=== PATIENT | male | born 1975 | race Caucasian/White ===

== ENCOUNTER 2018-06-01 11:23 | Emergency (ER) | payer OTHER | END 2018-06-01 13:47 | disposition home or self-care (01) | LOC: FTE 11:23 | DX: S80.812A Abrasion, left lower leg, initial encounter (principal); J45.909 Unspecified asthma, uncomplicated; W20.8XXA Other cause of strike by thrown, projected or falling object, initial encounter; Y92.89 Other specified places as the place of occurrence of the external cause | CPT/HCPCS: 73630; 73630-LT; 99283-25 ==

== ENCOUNTER 2018-06-06 10:09 | Emergency (ER) | payer SELFPAY | END 2018-06-06 11:53 | disposition home or self-care (01) | LOC: FTE 10:09 | DX: S90.122A Contusion of left lesser toe(s) without damage to nail, initial encounter (principal); S89.92XA Unspecified injury of left lower leg, initial encounter; J45.909 Unspecified asthma, uncomplicated; W18.39XA Other fall on same level, initial encounter; Y92.89 Other specified places as the place of occurrence of the external cause | CPT/HCPCS: 73562; 73660; 99283-25 ==